=== PATIENT | male | born 1955 | race Hispanic/Latino ===

== ENCOUNTER 2024-04-20 08:33 | Emergency (ER) | payer MEDICARE ==
[~2024-04-20] VITALS: Ht 175.3 cm; Wt 77.0 kg
[2024-04-20] MEDS ORDERED: OXYCODONE/APAP 5/325 TAB PO ONE (08:45)
[2024-04-20] MEDS ORDERED: PERCOCET 5-3251 EACH PO (09:13)
[2024-04-20 09:21] VITALS: BP 158/77
== END 2024-04-20 09:21 | disposition home or self-care (01) ==
LOC: ED 08:33
DX: G89.29 Other chronic pain (principal); M25.552 Pain in left hip
CPT/HCPCS: 99283